=== PATIENT | female | born 1970 | race Caucasian/White ===

== ENCOUNTER 2017-03-21 13:49 | Emergency (ER) | payer OTHER ==
[~2017-03-21] VITALS: Ht 167.6 cm; Wt 85.0 kg
[2017-03-21] MEDS ORDERED: HYDROmorphone 1 MG/ML, 1ML ONE (15:11)
[2017-03-21] MEDS ORDERED: ONDANSETRON 2MG/ML, 2ML ONE (15:11)
[2017-03-21] MEDS ORDERED: LORazepam 2 MG/ML, 1ML ONE (15:11)
[2017-03-21] MEDS ORDERED: SUMA25TA3 PO (15:39)
[2017-03-21] MEDS ORDERED: HYDROmorphone 1 MG/ML, 1ML IVPush PRN (16:00)
[2017-03-21] MEDS ORDERED: ONDANSETRON 2MG/ML, 2ML IVPush ONE (16:00)
[2017-03-21] MEDS ORDERED: SODIUM CHLORIDE FLUSH 10ML SYR IVF ONE (16:00)
[2017-03-21] MEDS ORDERED: LORazepam 2 MG/ML, 1ML IVPush ONE (16:00)
[2017-03-21] MEDS ORDERED: SODIUM CHLORIDE 0.9% 1,000ML IVBOLUS ONE (16:00)
[2017-03-21 16:21] LABS: BLOOD UREA NITROGEN 9 mg/dL (7-18)
[2017-03-21 16:25] LABS: ASPARTATE AMINO TRANSFERASE 56 U/L (15-37)
[2017-03-21 17:09] VITALS: BP 150/100
== END 2017-03-21 17:31 | disposition home or self-care (01) ==
LOC: ED 16:06
DX: G43.909 Migraine, unspecified, not intractable, without status migrainosus (principal); E03.9 Hypothyroidism, unspecified; Z90.710 Acquired absence of both cervix and uterus
CPT/HCPCS: 36415; 70450; 80053; 85025; 96374; 96375; 99285; J1170; J2060; J2405; J7030